=== PATIENT | male | born 1950 | race Caucasian/White ===

== ENCOUNTER → 2018-08-24 | Outpatient (CLI) | payer OTHER ==
--- NOTE | 2018-08-24 16:53 | XR ---
EXAMINATION TYPE: XR ankle complete LT DATE OF EXAM: 08/24/2018 COMPARISON: NONE HISTORY: Ankle pain TECHNIQUE: 3 views FINDINGS: There are plantar and Achilles calcaneal spurs. I see no fracture nor dislocation. Ankle mo rtise is anatomic. IMPRESSION: Calcaneal spurring. No fracture.
== END | disposition home or self-care (01) ==
LOC: RADXRMAIN 16:22
PROVIDERS: ATTEND Family Medicine
DX: M77.32 Calcaneal spur, left foot (principal)

== ENCOUNTER → 2019-06-30 | Outpatient (CLI) | payer OTHER ==
[2019-06-30 16:46] LABS: African American GFR (CKD) 80.1 (60.0-200.0); Albumin 4.6 g/dL (3.80-4.90); Albumin/Globulin Ratio 2.3 (1.60-3.17); Anion Gap 10.1 mmol/L (4.00-12.00); BUN/Creat Ratio 19.09 Ratio (12.00-20.00); Calcium 9.6 mg/dL (8.7-10.3); Carbon Dioxide 26.9 mmol/L (21.6-31.8); LDL Cholesterol,Calculated 46.4 mg/dL (0.0-131.0); Potassium 4.6 mmol/L (3.5-5.5); Total Bilirubin 0.6 mg/dL (0.3-1.2); Total Protein 6.6 g/dL (6.2-8.2); VLDL Calculation 31.6 mg/dL (5.00-40.00)
[2019-06-30 18:28] LABS: Hemoglobin A1C 6.8 % (4.0-6.0)
== END | disposition home or self-care (01) ==
LOC: LABWHC1 07:59
PROVIDERS: ATTEND Family Medicine
DX: E11.9 Type 2 diabetes mellitus without complications (principal); E78.5 Hyperlipidemia, unspecified
CPT/HCPCS: 36415; 80053; 80061; 83036

== ENCOUNTER 2021-04-02 07:13 | Day surgery (SDC) | payer OTHER ==
[2021-03-31 09:12] VITALS: BMI 35.5
[~2021-04-02 07:13] MED LIST: LACTATED RINGERS 1,000 ML IV SCH; LIDOCAINE 1% (10MG/ML) FOR IV START INTRADERMA PRN
[2021-04-02 07:41] VITALS: RESP 16; TEMP 97.9
[2021-04-02 07:43] LABS: Glucose,Whole Blood 134 mg/dL (75-99)
[2021-04-02] MEDS ORDERED: fentaNYL (PF) 50 MCG/ML 2 ML AMP ONE (08:22)
[2021-04-02] MEDS ORDERED: MIDAZOLAM 2 MG/2 ML VIAL ONE (08:22)
[2021-04-02] MEDS ORDERED: PROPOFOL 10 MG/ML 20 ML VIAL IV ONE (08:22)
--- NOTE | 2021-04-02 08:28 | P.GSHP ---
History of Present Illness H&P Date: 04/02/21 Chief Complaint: Screening colonoscopy Is a 62-year-old male presents today for screening colonoscopy. Patient denies any significant GI complaints. Past Medical History Past Medical History: Diabetes Mellitus, Hyperlipidemia, Hypertension, Osteoarthritis (OA), Sleep Apnea/CPAP/BIPAP Additional Past Medical History / Comment(s): CPAP use. History of Any Multi-Drug Resistant Organisms: None Reported Past Surgical History: Cholecystectomy Additional Past Surgical History / Comment(s): Colonoscopy. Past Anesthesia/Blood Transfusion Reactions: No Reported Reaction Past Psychological History: No Psychological Hx Reported Smoking Status: Never smoker Past Alcohol Use History: Occasional Past Drug Use History: None Reported - Past Family History Mother Family Medical History: Cancer Medications and Allergies Home Medications Medication Instructions Recorded Confirmed Type Atorvastatin [Lipitor] 20 mg PO DAILY 03/31/21 04/02/21 History Cholecalciferol [Vitamin D3 (25 50 mcg PO DAILY 03/31/21 04/02/21 History Mcg = 1000 Iu)] Hydrochlorothiazide 12.5 mg PO DAILY 03/31/21 04/02/21 History [hydroCHLOROthiazide] Lisinopril [Prinivil] 10 mg PO QAM 03/31/21 04/02/21 History Multivitamins, Thera [Multivitamin 1 tab PO DAILY 03/31/21 04/02/21 History (formulary)] glipiZIDE [Glucotrol] 5 mg PO AC-BID 03/31/21 04/02/21 History metFORMIN HCL [Glucophage] 1,000 mg PO BID 03/31/21 04/02/21 History Allergies Allergy/AdvReac Type Severity Reaction Status Date / Time No Known Allergies Allergy Verified 04/02/21 07:25 Surgical - Exam Vital Signs Temp Pulse Resp BP Pulse Ox 97.9 F 62 16 140/78 95 04/02/21 07:27 04/02/21 07:27 04/02/21 07:27 04/02/21 07:27 04/02/21 07:27 - General well developed, well nourished, no distress - Eyes PERRL - ENT normal pinna - Neck no masses - Respiratory normal expansion - Cardiovascular Rhythm: regular - Abdomen Abdomen: soft, non tender Results - Labs Abnormal Lab Results - Last 24 Hours (Table) 04/02/21 Range/Units 07:40 POC Glucose (mg/dL) 134 H (75-99) mg/dL Assessment and Plan Assessment: We'll perform screening colonoscopy.
--- NOTE | 2021-04-02 08:37 | P.OP ---
Date of Procedure: 04/02/21 Preoperative Diagnosis: Screening Postoperative Diagnosis: Diverticulosis Procedure(s) Performed: Colonoscopy Anesthesia: MAC Surgeon: Taye Smith Pathology: none sent Condition: stable Disposition: PACU Description of Procedure: The patient's placed on the endoscopy table in the lateral position. He received IV sedation. Digital rectal exam was performed which revealed no abnormalities. Flexible colonoscope was then placed patient anus passed throughout the entire colon. The ileocecal valve was visualized. Cecum, ascending and transverse colon appeared normal. In the descending and sigmoid colon there is moderate diverticular changes. The scope was then brought back to the rectum and this appeared normal. Scope withdrawn for patient.
[2021-04-02 09:12] VITALS: BP 110/67; PULSE 65
== END 2021-04-02 09:21 | disposition home health service (06) ==
LOC: ORWHC2ENDO 07:13
PROVIDERS: ATTEND Surgery
DX: Z12.11 Encounter for screening for malignant neoplasm of colon (principal); K57.30 Diverticulosis of large intestine without perforation or abscess without bleeding; E11.9 Type 2 diabetes mellitus without complications; E78.5 Hyperlipidemia, unspecified; I10 Essential (primary) hypertension; M19.90 Unspecified osteoarthritis, unspecified site; G47.30 Sleep apnea, unspecified; Z90.49 Acquired absence of other specified parts of digestive tract; Z80.9 Family history of malignant neoplasm, unspecified; Z79.899 Other long term (current) drug therapy; Z79.84 Long term (current) use of oral hypoglycemic drugs
CPT/HCPCS: J2250; J3010; J2704; G0121

== ENCOUNTER → 2021-08-25 | Outpatient (CLI) | payer MEDICARE ==
--- NOTE | 2021-08-25 13:19 | XR ---
EXAMINATION TYPE: XR knee limited RT DATE OF EXAM: 08/25/2021 CLINICAL HISTORY: Pain and swelling. TECHNIQUE: Frontal and lateral views of the right knee are obtained. COMPARISON: None. FINDINGS: There is no acute fracture/dislocation evident in right knee. Mild to moderate tricompartm ent joint space loss. Mild patellofemoral compartment spurring. Additional prominent spur anterior cancino perior patellar distal quadriceps tendon attachment. The overlying soft tissue appears unremarkable. IMPRESSION: As above.
== END | disposition home or self-care (01) ==
LOC: RADXRMAIN 12:47
PROVIDERS: ATTEND Family Medicine
DX: M17.11 Unilateral primary osteoarthritis, right knee (principal); M76.891 Other specified enthesopathies of right lower limb, excluding foot